=== PATIENT | female | born 1990 | race Asian ===

== ENCOUNTER 2017-02-25 18:47 | Emergency (ER) | payer BC ==
[2017-02-25 19:55] VITALS: BP 97/56
--- NOTE | 2017-02-25 20:26 | UC ---
Abdominal Pain Female HPI - HPI Summary HPI Summary: 26 yo female has had chronic /intermittent left side pelvic pain x 2yrs lasts minutes to up to 1/2 hour pain is mild and doesn't require analgesics Last year she saw a web application developer in [place] Had a complete exam and an ultrasound no cause was found no vaginal d/c no f/c no n/v/d never wakes her at night does not interfer with her activities - History of Current Complaint Chief Complaint: UCGI Stated Complaint: ABDOMINAL COMPLAINT Time Seen by Provider: 02/25/17 20:02 Hx Obtained From: Patient Hx Last Menstrual Period: 02/11/17 Onset/Duration: Sudden Onset, Lasting Minutes Timing: Intermittent Episodes Lasting: Severity Initially: Mild Severity Currently: None Pain Intensity: 0 - 3 max Pain Scale Used: 0-10 Numeric Location: Other - left pelvic Radiates: No Character: Dull Aggravating Factor(s): Nothing Alleviating Factor(s): Nothing Associated Signs and Symptoms: Positive: Negative Allergies/Adverse Reactions: Allergies Allergy/AdvReac Type Severity Reaction Status Date / Time No Known Allergies Allergy Verified 02/25/17 19:56 PMH/Surg Hx/FS Hx/Imm Hx Endocrine History Of: Denies: Diabetes, Thyroid Disease, Hyperthyroidism, Hypothyroidism, Dyslipidemia Cardiovascular History Of: Denies: Cardiac Disorders, Hypertension, Pacemaker/ICD, Myocardial Infarction , Congestive Heart Failure, Atrial Fibrillation, Deep Vein Thrombosis, Bleeding Disorders Respiratory History Of: Denies: COPD, Asthma, Bronchitis, Pneumonia, Pulmonary Embolism GI/ History Of: Denies: Gastroesophageal Reflux, Ulcer, Gastrointestinal Bleed, Gall Bladder Disease, Kidney Stones, Diverticulitis, Renal Disease, Urosepsis Neurological History Of: Denies: TIA, CVA, Dementia, Seizures, Migraine Psychological History Of: Denies: Anxiety, Depression, Bipolar Disorder, Schizophrenia, Post Traumatic Stress Disorder Cancer History Of: Denies: Lung Cancer, Colorectal Cancer, Breast Cancer, Prostate Cancer, Cervical Cancer Other History Of: Negative For: HIV, Hepatitis B, Hepatitis C, Anticoagulant Therapy - Surgical History Surgical History: None - Family History Known Family History: Positive: Cardiac Disease, Hypertension - Social History Alcohol Use: None Substance Use Type: None Smoking Status (MU): Never Smoked Tobacco Review of Systems Constitutional: Negative Skin: Negative Eyes: Negative ENT: Negative Respiratory: Negative Cardiovascular: Negative Gastrointestinal: Abdominal Pain Genitourinary: Negative Motor: Negative Neurovascular: Negative Musculoskeletal: Negative Neurological: Negative Psychological: Negative All Other Systems Reviewed And Are Negative: Yes Physical Exam Triage Information Reviewed: Yes Appearance: No Pain Distress, Well-Nourished Vital Signs: Initial Vital Signs Temp 99.8 F 02/25/17 19:52 Pulse 80 02/25/17 19:52 Resp 18 02/25/17 19:52 BP 97/56 02/25/17 19:52 Pulse Ox 98 02/25/17 19:52 Vital Signs Reviewed: Yes Eyes: Positive: Other: - right blepharospasm-(states she has seen a neurologist about this) ENT: Positive: Hearing grossly normal. Negative: Nasal congestion, Nasal drainage, Trismus, Muffled/hoarse voice Dental Exam: Normal Neck: Positive: Nontender, No Lymphadenopathy Respiratory: Positive: Lungs clear, Normal breath sounds, No respiratory distress Cardiovascular: Positive: RRR, No Murmur Abdomen Description: Positive: Nontender - see image, Soft. Negative: CVA Tenderness (R), CVA Tenderness (L), Hernia @, Hepatomegaly, Splenomegaly Bowel Sounds: Positive: Present Musculoskeletal: Positive: ROM Intact, No Edema Neurological: Positive: Alert Psychological Exam: Normal Skin Exam: Normal Abd Pain Female Course/Dx - Differential Dx/Diagnosis Provider Diagnoses: chronic intermittent pevic pain of uncertain cause Discharge - Discharge Plan Condition: Stable Disposition: HOME Patient Education Materials: Pelvic Pain in Women (ED) Referrals: Chuy Mclean MD [Medical Doctor] - 1 Week Additional Instructions: I AM UNSURE OF THE CAUSE OF YOUR CHRONIC INTERMITTENT LEFT SIDED PELVIC PAIN I THINK YOU SHOULD GET EVALUATED BY A EXECUTIVE ADMINISTRATOR [facility] IF NEEDED
== END 2017-02-25 20:36 | disposition home or self-care (01) ==
LOC: UCEAST 18:47
DX: R10.2 Pelvic and perineal pain (principal); G24.5 Blepharospasm
CPT/HCPCS: 99211; G0463

== ENCOUNTER 2017-07-01 20:36 | Emergency (ER) | payer SELFPAY ==
--- NOTE | 2017-07-01 20:45 | UC ---
Throat Pain/Nasal Alex HPI - HPI Summary HPI Summary: 27 YEAR OLD FEMALE PRESENTS WITH COMPLAINS OF SORE THROAT, FEVER, AND CHILLS. - History of Current Complaint Chief Complaint: UCAbdominalPain Stated Complaint: FEVER, SORE THROAT Time Seen by Provider: 07/01/17 20:44 Hx Last Menstrual Period: 06/27/17 - Allergies/Home Medications Allergies/Adverse Reactions: Allergies Allergy/AdvReac Type Severity Reaction Status Date / Time No Known Allergies Allergy Verified 02/25/17 19:56 PMH/Surg Hx/FS Hx/Imm Hx Other History Of: Negative For: HIV, Hepatitis B, Hepatitis C, Anticoagulant Therapy - Surgical History Surgical History: None - Family History Known Family History: Positive: Cardiac Disease, Hypertension - Social History Alcohol Use: None Substance Use Type: None Smoking Status (MU): Never Smoked Tobacco Review of Systems Constitutional: Fever, Chills, Fatigue Skin: Negative Eyes: Negative ENT: Negative Respiratory: Negative Cardiovascular: Negative Gastrointestinal: Negative Genitourinary: Negative Motor: Negative Neurovascular: Negative Musculoskeletal: Negative Neurological: Negative Psychological: Negative All Other Systems Reviewed And Are Negative: Yes Physical Exam Triage Information Reviewed: Yes Vital Signs: Initial Vital Signs Temp 38.0 C 07/01/17 20:41 Pulse 109 07/01/17 20:41 Resp 20 07/01/17 20:41 BP 103/54 07/01/17 20:41 Pulse Ox 100 07/01/17 20:41 Eye Exam: Normal ENT: Positive: Pharyngeal erythema, Nasal congestion, Nasal drainage, Tonsillar swelling Dental Exam: Normal Neck exam: Normal Neck: Positive: 1 Respiratory Exam: Normal Cardiovascular Exam: Normal Abdominal Exam: Normal Musculoskeletal Exam: Normal Neurological Exam: Normal Psychological Exam: Normal Skin Exam: Normal Throat Pain/Nasal Course/Dx - Differential Dx/Diagnosis Provider Diagnoses: PHARYNGITIS Discharge - Discharge Plan Condition: Stable Disposition: HOME Prescriptions: Amoxicillin/Clavulanate TAB* [Augmentin TAB 875*] 875 mg PO BID #20 tab LoraTADine TAB(NF) [Claritin 10 MG TAB(NF)] 10 mg PO DAILY #30 tab Magic M W2 Indra/Maal/Nyst/Lido* 15 ml SWISH SPIT QID #120 ml Patient Education Materials: Pharyngitis (ED) Referrals: Hero Wallace MD [Primary Care Provider] -
[2017-07-01] MEDS ORDERED: Amoxicillin/Clavulanate TAB* 875 MG PO ONE (21:09)
[2017-07-01] MEDS ORDERED: LoraTADine TAB(NF) 10 MG TAB (AUTOSUB to CETIRIZINE) PO ONE (21:10)
[2017-07-01] MEDS ORDERED: Lidocaine 2% VISCOUS* 15 ML UDC PO ONE (21:11)
[2017-07-01] MEDS ORDERED: Al Hydrox/Mg Hydrox/Simet LIQ* 30 ML UDC PO ONE (21:12)
[2017-07-01] MEDS ORDERED: Acetaminophen TAB* 325 MG PO ONE (21:15)
[2017-07-01 21:44] VITALS: BP 101/61
== END 2017-07-01 21:46 | disposition home or self-care (01) ==
LOC: UCEAST 20:36
DX: J02.9 Acute pharyngitis, unspecified (principal); R50.9 Fever, unspecified; R53.83 Other fatigue
CPT/HCPCS: 87651; 99213; A9270-GY; G0463